=== PATIENT | female | born 1970 | race Caucasian/White ===

== ENCOUNTER 2021-09-18 14:34 | Emergency (ER) | payer OTHER, SELFPAY ==
[2021-09-18 14:36] VITALS: BP 163/87; PULSE 75; RESP 16; TEMP 36.1; O2SAT 98; BMI 30.9
[2021-09-18 14:53] LABS: Mucous, Urine 0 SEEN /hpf (<or=2+)
[2021-09-18 15:04] LABS: Color, Urine Yellow (Yellow); Glucose, Dipstick Normal (Normal); Ketone-Dipstick Negative (Negative); Leukocyte Esterase-Dipstick 25 /ul (Negative); Nitrite-Dipstick Negative (Negative); Occult Blood-Urine 250 /ul (Negative); Protein-Dipstick 15 mg/dl (Negative); Specific Gravity, Urine 1.025 (1.002-1.030); Urine Bilirubin Dipstick Negative (Negative); Urine Clarity Sl. Cloudy (Clear); Urine Urobilinogen Normal (Normal)
[2021-09-18 15:10] LABS: Bacteria 1+ /hpf (None Seen); Red Blood Cells-Urine 25-50 SEEN /hpf (0-5); Squamous Epithelial Cells - UA 0-5 SEEN /hpf (5-10); White Blood Cells 0-5 SEEN /hpf (0-5)
[2021-09-18 15:12] LABS: Absolute Lymphocyte Count 2.79 X10^3/uL (0.83-4.51); Absolute Neutrophil Count 4.2 X10^3/uL (2.0-7.7); Basophil# 0.04 X10^3/uL; Basophil% 0.5 % (0-1); Eosinophil# 0.26 X10^3/uL; Eosinophils% 3.4 % (0-5); Hematocrit 43.4 % (37-47); Lymphocyte # 2.79 X10^3/ul (0.83-4.51); Mean Corp Hgb Conc 34.6 g/dL (32-36); Mean Corpuscular Volume 89.7 fL (81-99); Mean Platelet Vol. 9.6 fl (6.2-12.0); Monocyte# 0.41 X10^3/uL; Monocyte% 5.3 % (0-10); NRBC Flagged by Analyzer 0 % (0-5); Neutrophil # 4.23 X10^3/uL (2.7-7.7); Neutrophil % 54.4 % (47-70); Platelet Count 278 K/mm3 (150-450); RBC Distribution Width CV 12.5 % (11.6-14.6); RBC Distribution Width SD 41.1 fl (35.1-43.9); Red Blood Count 4.84 M/mm3 (4.2-5.4); White Blood Count 7.8 K/mm3 (4.4-11.0)
[2021-09-18 15:26] LABS: Anion Gap 3 (5-15); BUN 14 mg/dL (7-18); BUN/Creat Ratio 21.1 RATIO (10-20); Calcium,Total 9.4 mg/dL (8.5-10.1); Chloride 107 mmol/L (98-107); Creatinine, Serum 0.66 mg/dL (0.55-1.02); EST Glomerular Filtration Rate 101 mL/min (>60); Est Glom Filt Rate - Afr Amer 122 mL/min (>60); Estimated Creatinine Clearance 77.81 ml/min; Glucose 159 mg/dL (74-106); Potassium 3.8 mmol/L (3.5-5.1); Sodium Level 139 mmol/L (136-145)
--- NOTE | 2021-09-18 16:03 | CT_ITS ---
STUDY: CT ABDOMEN AND PELVIS WITH CONTRAST REASON FOR EXAM: Female, 51 years old. LLQ abd pain ?? diverticulitis vs other RADIATION DOSAGE (If Supplied By Facility): CTDIvol = ( 19.24 ) mGy, DLP = ( 1069.42 ) mGycm TECHNIQUE: Transaxial images were obtained from the dome of the diaphragm to the symphysis pubis without oral contrast. IV 100mL Isovue-370 was administered. Sagittal and coronal images were reconstructed. Individualized dose optimization techniques were used for this CT. COMPARISON: 06/04/2016 FINDINGS: The visualized lung bases are unremarkable. The visualized portions of the heart are within normal limits. Normal liver. Normal gallbladder and extrahepatic biliary system. Normal spleen. Normal pancreas. Normal bilateral adrenal glands. Normal right kidney. 3 mm obstructing stone in the mid left ureter with mild ureteral dilatation and hydronephrosis. Normal visualized stomach. Normal small intestine. Normal colon. The appendix is visualized and appears normal. Normal abdominal aorta. Normal inferior vena cava. Normal retroperitoneum. Normal urinary bladder. There is a small umbilical hernia containing fat. Normal osseous structures. CT/Abdomen/Pelvis W IV Cont ONLY IMPRESSION: 3 mm obstructing stone in the mid left ureter with mild ureteral dilatation. Electronically Signed: Yossi Regan MD at 17:33 EDT ,
--- NOTE | 2021-09-18 16:07 | EDS_ITS ---
HPI HPI - GI History of Present Illness Chief Complaint: Abd Pain Informant: patient Abdominal Pain/Flank Pain Onset: Days Context: Gradual Onset Timing: Continuous Quality: Aching Location: LLQ Current Severity: Mild Maximum Severity: Mild Worsened by: Nothing Relieved by: Nothing Nausea/Vomiting/Emesis GI Symptom: Positive for Nausea; Negative for Vomiting Onset: Days Severity: Mild Diarrhea/Melena/Hematochezia GI Symptom: Negative for Diarrhea, Melena or Hematochezia Associated Symptoms Associated Symptoms: Negative for Dysuria, Frequency, Hematuria or Urgency Narrative Narrative: 51-year-old female no seen past medical history. Prior hysterectomy and takedown of adhesions from endometriosis. Also had a prior . 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 Denies any fever chills. Mild nausea no vomiting or diarrhea. No melena. No dysuria. She initially took Azo and levator symptoms better but now she still having the pain. She is never had a history of diverticulitis. Prior similar symptoms: No Recent Illness/Hospitalization: No PFSH PFSH Home Medications loratadine 10 mg tablet (Allergy Relief (loratadine)) 10 mg PO DAILY 07/14/14 [History Last Taken Unknown] ciprofloxacin HCl 500 mg tablet 500 mg PO BID ##20 06/04/16 [Rx Last Taken Unknown] fluconazole 150 mg tablet (Diflucan) 150 mg PO X1 ##3 06/04/16 [Rx Last Taken Unknown] Allergy/AdvReac Type Severity Reaction Status Date / Time amoxicillin [Amoxicillin] Allergy Rash Verified 09/18/21 14:35 azithromycin [From Zithromax] Allergy Fever and Verified 09/18/21 14:35 skin rash Social History Smoking Status: Current every day smoker tobacco type: cigarettes ROS ROS ED ROS Narrative Left lower quadrant abdominal pain with mild nausea. Review of Systems ROS Unobtainable: Denies due to encephalopathy Constitutional Constitutional ED: Denies chills ENT ENT ED: Denies ear pain Cardiovascular Cardiovascular: Denies chest pain Respiratory/Chest Respiratory/Chest: Denies cough Gastrointestinal Gastrointestinal: Reports abdominal pain and nausea; Denies constipation, diarr hea, melena or vomiting Genitourinary Genitourinary ED: Denies dysuria or hematuria Musculoskeletal Musculoskeletal: Denies arthralgias Integumentary Denies abscess Neurologic Neurologic: Denies headache(s) Psychiatric Psychiatric: Denies anxiety Endocrine Endocrinology: Denies polydipsia Hematologic/Lymphatic Hematologic/Lymphatic: Denies easy bleeding Allergic/Immunologic Allergic/Immunologic ED: Denies mouth swelling EXAM Physical Exam Narrative Exam Narrative: female no acute distress vital signs stable afebrile. Lungs are clear. Heart regular rhythm. Abdomen soft nondistended normal bowel sounds no peritoneal signs. Tender left lower quadrant. No hernia or mass. No obstruction. Moving all 4 extremities. Neurologically she is awake and alert. Const Vital Signs: 09/18/21 14:36 09/18/21 18:10 Temperature 97.0 F L Temperature Source Temporal Pulse Rate 75 82 Respiratory Rate 16 16 Blood Pressure 163/87 H 136/75 H Blood Pressure Mean 112 95 Pulse Ox 98 97 Oxygen Delivery Method Room Air Room Air Positive well nourished, well developed and obese; Negative for cachectic, contractures or unkempt General Appearance ED: well developed; Negative for unkempt, cachectic, contractures or pallor Nutritional Appearance: obese; Negative for cachectic HEENT Reports moist mucous membranes normocephalic and atraumatic; Negative for trauma or tenderness Eyes PERRL and EOMs intact bilaterally General Eye ED: Negative for pale conjunctiva or scleral icterus Neck no lymphadenopathy, supple and no JVD General: Negative for tenderness Carotids: Negative for other Lymph Lymphatic: Negative for other Resp normal respiratory effort and clear to auscultation bilaterally Effort and Inspection: Negative for respiratory distress Auscultation: Negative for rales, rhonchi or wheezes Cardio regular rate, regular rhythm, S1 normal heart sound, S2 normal heart sound and no murmurs Rate: Negative for bradycardia Rhythm: Negative for abnormal rhythm GI non-distended and no masses; Negative for non-tender Auscultation: normoactive bowel sounds; Negative for hyperactive bowel sounds or hypoactive bowel sounds Palpation: soft and tender; Negative for guarding, rigid, hepatomegaly or splenomegaly Back/Spine no CVA tenderness General Back: Negative for CVA tenderness Cervical Spine: Negative for cervical spine tenderness Thoracic Spine / Upper Back: Negative for thoracic spinal tenderness Lumbar Spine / Lower Back: Negative for lumbar spinal tenderness Extremity full ROM General Extremety ED: Negative for tenderness Neuro moves all extremities Sensorium / Orientation: alert, oriented to person, oriented to place and oriented to time; Negative for orientation impaired, confused, lethargic or stuporous Motor Exam: strength 5/5 throughout Psych mental status grossly normal Appearance: Negative for unkempt Attitude: No agitated Mood & Affect: Negative for depressed Skin no wounds General Skin Exam: Negative for jaundice or pallor Lesions: no lesions Rashes: no rashes Trauma: Negative for abrasion Nails: Negative for discolored MDM MDM MDM Narrative Medical decision making narrative: 51-year-old female with left lower quadrant abdominal pain. CAT scan labs are pending. Differential would include diverticulitis. She did not want anything for pain or nausea. Repeat exam patient doing well at 7:20 PM. We went over her test results. She did not want a thing for pain or nausea. She has had a kidney stone in the past. She will treated with Tylenol Motrin. Fluids and return if any problems. Lab Data Attestation: I reviewed the patient's lab results. Lab results narrative: CBC normal. White count of 7. H&H 15 and 43. Electrolytes unremarkable gap of 3 normal BUN and creatinine. Glucose 159. UA shows 25-50 red cells but no white cells or nitrites. Serum test negative. CAT scan showed a left mid ureteral 3 mm kidney stone. Consistent with her microscopic hematuria. Labs: Laboratory Results - last 24 hr 09/18/21 09/18/21 09/18/21 14:48 15:00 15:00 WBC 7.8 RBC 4.84 Hgb 15.0 Hct 43.4 MCV 89.7 MCH 31.0 MCHC 34.6 RDW Std Deviation 41.1 RDW Coeff of Darryl 12.5 Plt Count 278 MPV 9.6 Immature Gran % (Auto) 0.400 Neut % (Auto) 54.4 Lymph % (Auto) 36.0 [place] % (Auto) 5.3 Eos % (Auto) 3.4 Baso % (Auto) 0.5 Absolute Neuts (auto) 4.2 Absolute Lymphs (auto) 2.79 Nucleated RBC % 0 Sodium 139 Potassium 3.8 Chloride 107 Carbon Dioxide 29.0 Anion Gap 3 L BUN 14 Creatinine 0.66 Estim Creat Clear Calc 77.81 Est GFR (MDRD) Af Amer 122 Est GFR (MDRD) Non-Af 101 BUN/Creatinine Ratio 21.1 H Glucose 159 H Calcium 9.4 Serum , Qual Urine Color Yellow Urine Clarity Sl. Cloudy Urine pH 6.0 Ur Specific Downey 1.025 Urine Protein 15 H Urine Glucose (UA) Normal Urine Ketones Negative Urine Occult Blood 250 H Urine Nitrite Negative Urine Bilirubin Negative Urine Urobilinogen Normal Ur Leukocyte Esterase 25 H Urine RBC 25-50 SEEN Urine WBC 0-5 SEEN Ur Squamous Epith Cells 0-5 SEEN Urine Bacteria 1+ Urine Mucus 0 SEEN 09/18/21 15:00 WBC RBC Hgb Hct MCV MCH MCHC RDW Std Deviation RDW Coeff of Darryl Plt Count MPV Immature Gran % (Auto) Neut % (Auto) Lymph % (Auto) [place] % (Auto) Eos % (Auto) Baso % (Auto) Absolute Neuts (auto) Absolute Lymphs (auto) Nucleated RBC % Sodium Potassium Chloride Carbon Dioxide Anion Gap BUN Creatinine Estim Creat Clear Calc Est GFR (MDRD) Af Amer Est GFR (MDRD) Non-Af BUN/Creatinine Ratio Glucose Calcium Serum , Qual NEGATIVE Urine Color Urine Clarity Urine pH Ur Specific [place] Urine Protein Urine Glucose (UA) Urine Ketones Urine Occult Blood Urine Nitrite Urine Bilirubin Urine Urobilinogen Ur Leukocyte Esterase Urine RBC Urine WBC Ur Squamous Epith Cells Urine Bacteria Urine Mucus Radiography Diagnostic Testing: Clinical Impression(s) from Imaging Studies Abdomen/Pelvis CT 09/18/21 16:03 IMPRESSION: 3 mm obstructing stone in the mid left ureter with mild ureteral dilatation. Electronically Signed: Yossi Regan MD at 17:33 EDT Reading Location ID and State: [address] [place] [address] Tel , Service support , Discharge Plan Triage Chief Complaint: Abd Pain ED Provider: Pedro Deleon Dx/Rx/DC Orders Clinical Impression: Acute flank pain, Kidney stone on left side Instructions: ED Kidney Stone w/ Colic Prescriptions: No Action loratadine [Allergy Relief (loratadine)] 10 MG tablet 10 mg PO DAILY ciprofloxacin HCl 500 MG tablet 500 mg PO BID Qty: 20 0RF fluconazole [Diflucan] 150 MG tablet 150 mg PO X1 Qty: 3 0RF Primary Care Provider: Care Physician,No Primary Referrals: Marcial Curtis MD [STAFF PHYSICIAN] - As Needed NOT,DEFINED [NON-STAFF] - Activity Restrictions/Additional Instructions: Plenty of fluids. Motrin and Tylenol. You have a 3 mm kidney stone on the left that is long-term down your bladder. This should pass. Return or follow-up if increasing pain, fever or intractable vomiting. Disposition Disposition: Home, Self Care
[2021-09-18 16:26] LABS: Internal QC Validated? YES +Cl - CLEAR BKGD; Pregnancy, Serum, hCG Quali. NEGATIVE Negative
[2021-09-18 18:10] VITALS: BP 136/75; PULSE 82; RESP 16; O2SAT 97
--- NOTE | 2021-09-18 19:23 | CM.ED ---
Social Work Note Reason for Referral: No PCP SW in to speak with pt. Pt confirms she has no PCP. SW provided pt with PCP list/Healthcare Provider Directory. Beatriz Garrett MEAT [employer]IC[employer], [employer] PROFESSOR
[2021-09-18 19:27] VITALS: BP 124/74; PULSE 78; RESP 17
== END 2021-09-18 19:28 | disposition home or self-care (01) ==
PROVIDERS: Emergency Provider Emergency Medicine; Visit Provider Emergency Medicine
DX: N20.0 Calculus of kidney (principal); R10.32 Left lower quadrant pain; F17.210 Nicotine dependence, cigarettes, uncomplicated; E66.9 Obesity, unspecified
CPT/HCPCS: 74177; 80048; 81001; 84703; 85025; 99283; Q9967; A4216

== ENCOUNTER → 2023-05-16 | Outpatient (CLI) | payer OTHER, SELFPAY ==
--- NOTE | 2023-05-16 16:02 | BI_ITS ---
MAMMOGRAPHY - BILATERAL SCREENING REASON FOR EXAM: Female, 53 years old. Routine annual screening examination. PERTINENT HISTORY: Non-contributory. TECHNIQUE: Digital bilateral breast isaías (3D mammographic acquisition) in the CC and MLO projections. 2-D mediolateral oblique (MLO) and craniocaudad (CC) views of both breasts were obtained. CAD: Full Field Digital Mammography with Computer Added Detection was performed. COMPARISON: None. Baseline examination. FINDINGS: Breast Composition: The breasts are heterogeneously dense, which may obscure small masses. There are no dominant masses or suspicious calcifications. Fat-containing left axillary lymph node. No other significant abnormalities are identified. BI/SCRN MAMM (CAD)W/ISAÍAS BILAT IMPRESSION: Negative screening mammogram. Yearly followup mammogram recommended. (A) ASSESSMENT CATEGORY: BIRADS Category 2: Benign. A letter regarding these results will be sent to the patient by the facility within 30 days. Approximately 10% of breast cancers are not detected by mammography. A normal mammogram should not delay biopsy of a clinically suspicious abnormality. [id number] Electronically Signed: Lester Kirkpatrick MD at 8:40 EDT ,
== END | disposition home or self-care (01) ==
LOC: OPBI 16:02
PROVIDERS: PCP Family Medicine; Referring Provider Family Medicine; Visit Provider Family Medicine
DX: Z12.31 Encounter for screening mammogram for malignant neoplasm of breast (principal)
CPT/HCPCS: 77063; 77067

== ENCOUNTER 2023-10-23 08:45 | Day surgery (SDC) | payer OTHER, SELFPAY ==
[2023-10-23] VITALS (7 sets, daily range): BP systolic 108–134; BP diastolic 71–76; PULSE 62–72; RESP 16–18; TEMP 36.1–36.6; O2SAT 97–99; BMI 27.8
--- NOTE | 2023-10-23 09:02 | PCM.PRE.AN2 ---
ASA Classification* ASA Classification ASA Classification: 2 Assessment & Plan Anesthesia* Anesthesia Assessment Anesthesia Assessment: Discussed sedation and/or anesthesia options, risks, benefits, and alternatives with patient/parents/legal guardian/POA. Questions invited. The patient/parents/legal guardian/POA seems to understand and agrees to proceed with anesthesia plan. Reviewed the physical assessment, medical history, allergy history and patient home medications list prior to surgery/procedure/anesthetic and documented any changes. Performed airway and anesthesia risk assessments. Anesthesia Type Anesthesia Type: MAC Anesthesia Focused Assessment* Airway Assessment Mouth opens: >3 cm Mallampati Score: II Focused Labs Anesthesia Preop lab: CBC WBC 7.8 K/mm3 (4.4-11.0) 09/18/21 15:00 RBC 4.84 M/mm3 (4.2-5.4) 09/18/21 15:00 Hgb 15.0 g/dL (12.0-15.0) 09/18/21 15:00 Hct 43.4 % (37-47) 09/18/21 15:00 Plt Count 278 K/mm3 (150-450) 09/18/21 15:00 CHEMISTRY Potassium 3.8 mmol/L (3.5-5.1) 09/18/21 15:00 Sodium 139 mmol/L (136-145) 09/18/21 15:00 BUN 14 mg/dL (7-18) 09/18/21 15:00 Creatinine 0.66 mg/dL (0.55-1.02) 09/18/21 15:00 Glucose 159 mg/dL (74-106) H 09/18/21 15:00 POC Glucose 237 mg/dL (70-110) H 06/04/16 19:45 COAG Pre-Assessment Diagnosis/Proposed Procedure Planned Operative Procedure(s): COLONOSCOPY Anesthesia History Anesthesia History - medical field representative: Anesthesia History - medical field representative Hx Hospitalization No 10/17/23 12:42 Any Problems With Anesthesia No 10/17/23 12:42 Cholinesterase deficiency No 10/17/23 12:42 You/Your Family Experience No 10/17/23 12:42 fever (hyperthermia) with Relationship Recent Exposure to Contagious No 11/02/13 06:20 Disease Does patient have nerve No 10/17/23 12:42 stimulator Patient instructed to have device shut off --Does patient have Pacemaker or ICD? When Was Last Pacemaker Check QUESTION #4 FULL TEXT: You/Your Family Experience fever (hyperthermia) with Anesthesia Last Oral Intake Last Oral intake: Last Oral Intake NPO since Meds taken in AM with sips of water? Meds patient instructed to take am of surgery PONV PONV - medical field representative: PONV - medical field representative Female Yes 10/17/23 12:42 HX of Motion Sickness No 10/17/23 12:42 HX of N/V After Surgery No 10/17/23 12:42 Non-Smoker Yes 10/17/23 12:42 Duration of Surgery greater No 10/17/23 12:42 than 60 minutes Number of Risk Factors 2 10/17/23 12:42 PONV Score Moderate Risk 10/17/23 12:42 Height & Weight Height & Weight: Anesthesia: Height & Weight Height 5 ft 2 in 10/02/23 08:28 Respiratory Assessment Respiratory Assessment - medical field representative: Respiratory Tract Infection Hx - medical field representative Hx Respiratory Tract Infection No 10/17/23 12:42 STOP Sleep Apnea STOP Sleep Apnea - medical field representative: STOP Sleep Apnea - medical field representative Hx Hypertension No 10/17/23 12:42 Hx Sleep Apnea No 10/17/23 12:42 CPAP BIPAP Do you snore loudly (louder No 10/17/23 12:42 than talking or can be heard Do you often feel tired/ No 10/17/23 12:42 fatigued/ sleepy during daytime? Has anyone observed you stop No 10/17/23 12:42 breathing during sleep? STOP Results Negative 10/17/23 12:42 QUESTION #5 FULL TEXT : Do you snore loudly (louder than talking or can be heard through closed doors)? 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 Specify any problems Hx of Preganancy in last 3 No 10/17/23 12:42 Months Nurse Filling Out Transfusion [id number] 10/17/23 12:42 & Questions: Date: 10/17/23 10/17/23 12:42 Time: 12:44 10/17/23 12:42 Patient unable to answer at this time (ie. confused, unrespo /Reproduction History /Reproductive History - medical field representative: /Reproductive Hx- medical field representative Hx Now No 10/17/23 12:42 Gestational Age (in weeks): EDC: Hx Hx Para Hx Section SAB No 10/17/23 12:42 Active Medications Active Medications: Current Medications Generic Name Dose Route Start Last Admin Trade Name Freq PRN Reason Stop Dose Admin Lactated Ringer's 1,000 mls @ 15 mls/hr 10/23/23 09:00 IV .Q48H WILIAN PFSH Medical History Alcohol use Heartburn Family history of colon cancer in father Home Medications ?Medication ?Instructions ?Recorded ?Last Taken ?Type NK 10/17/23 Unknown History Allergy/AdvReac Type Severity Reaction Status Date / Time amoxicillin (Amoxicillin) Allergy Rash Verified 10/17/23 12:41 azithromycin (From Zithromax) Allergy Rash Verified 10/17/23 12:41 Family History Father Colon cancer Mother Diabetes Surgical History H/O: hysterectomy Social History household members: significant other and children current occupational status: employed current occupation: [employer] Smoking Status: Current every day smoker tobacco type: cigarettes details: Occasional alcohol substance use type: does not use Review of Systems (Anesthesia) ROS Narrative System reviewed and no additional complaints, except as documented.
[2023-10-23] MEDS: Lactated Ringers 1,000 ML 15 ML IV (09:10)
--- NOTE | 2023-10-23 10:14 | PCM.HP.STD ---
[facility] - General General Date of Admission: 10/23/23 Date of Service: 10/23/23 Chief Complaint: Screening colonoscopy HPI Narrative YAJAIRA KOWALSKI, is a 53 F who presents today for screening colonoscopy. She has not had a colonoscopy in the past. She did have abdominal pain. She denied any bleeding. She is not any chest pain shortness of breath. Overall she is in very good health. She does not take any medicines on a daily basis. [facility] Medical History Alcohol use Heartburn Family history of colon cancer in father Home Medications ?Medication ?Instructions ?Recorded ?Last Taken ?Type NK 10/17/23 Unknown History Allergy/AdvReac Type Severity Reaction Status Date / Time amoxicillin (Amoxicillin) Allergy Rash Verified 10/23/23 09:07 azithromycin (From Zithromax) Allergy Rash Verified 10/23/23 09:07 Family History Father Colon cancer Mother Diabetes Surgical History H/O: hysterectomy Social History household members: significant other and children current occupational status: employed current occupation: [employer] Smoking Status: Current every day smoker tobacco type: cigarettes details: Occasional alcohol substance use type: does not use ROS Review of Systems ROS Unobtainable: other Constitutional Constitutional: Denies fatigue, fever(s), poor appetite, weight gain or weight loss ENT HEENT: Denies mouth lesions Cardiovascular Cardiovascular: Denies abdominal bloating, abdominal edema or abdominal pain Respiratory/Chest Respiratory/Chest: Denies change in mental status, change in phlegm color, chest congestion or chest tightness Gastrointestinal Gastrointestinal: Denies belching, bloating, change in bowel habits, change in stool character, chewing difficulty, coffee ground emesis, constipation, cramping, diarrhea, dyspepsia, dysphagia, early satiety, excessive flatus, fecal incontinence, heartburn, hematemesis, hematochezia, hemorrhoids, loose stools, melena, nausea, odynophagia, rectal bleeding, tenesmus, vomiting or weight changes Genitourinary Genitourinary: Denies abdominal discomfort, burning urination or itching Musculoskeletal Musculoskeletal: Reports as per HPI; Denies muscle weakness or myalgias Integumentary Integumentary: Denies jaundice Neurologic Neurologic: Denies lack of coordination or weakness Psychiatric Psychiatric: Denies confusion, depression, memory loss, mood swings, paranoia or suicidal ideation Endocrine Endocrinology: Denies systems reviewed and no addt'l complaints, except as documented Hematologic/Lymphatic Hematologic/Lymphatic: Denies anemia, easy bleeding, easy bruising or lymphadenopathy Allergic/Immunologic Allergic/Immunologic: Denies systems reviewed and no addt'l complaints, except as documented Vital Signs Vital Signs Vital Signs: 10/23/23 09:07 10/23/23 09:07 Temperature 97.8 F Temperature Source Temporal Pulse Rate 62 Respiratory Rate 16 Respiratory Pattern Normal Blood Pressure 134/73 H Blood Pressure Mean 93 Blood Pressure Source Monitor Blood Pressure Position Semi-Fowlers Blood Pressure Location Left Arm Oxygen Delivery Method Room Air Weight Weight: 152 lb 1.903 oz Body Mass Index (BMI) 27.8 Physical Exam Const alert General Appearance: cooperative Orientation / Consciousness: oriented to person HEENT hearing grossly normal bilaterally Head and Scalp: normal to inspection Face and Sinus: face symmetric Nose: external nose normal Mouth: oral and palatal mucosa normal Eyes conjunctivae normal General Eye: normal appearance of both eyes Neck full ROM General: normal visual inspection Lymph Lymphatic: no lymphadenopathy noted Chest inspection of chest normal and palpation of chest normal Chest: symmetrical chest wall rise Resp normal respiratory effort Effort and Inspection: able to speak in complete sentences Cardio regular rate GI non-distended Percussion: normal to percussion Rectal Exam: deferred Neuro Speech: speech normal Gait (Neuro): normal gait Assessment & Plan Assessment/Plan (1) Encounter for screening for malignant neoplasm of colon: PLAN: She was explained alternatives, risk, benefits including not withstanding bleeding, infection, sepsis, perforation, need for emergent urgent . She will have an ASA of 2.
--- NOTE | 2023-10-23 10:48 | OP.CCLET_ITS ---
10/23/2023 Ramiro Serrano [address] [place] [address] Re : Colonoscopy procedure for Tere Zabala Dear Dr. Serrano This procedure was performed on Monday, October 23, 2023. My impressions and recommendations are as follows: Impressions : - Diverticulosis in the recto-sigmoid colon and in the sigmoid colon. - The examination was otherwise normal on direct and retroflexion views. - No specimens collected. Recommendations : - Discharge patient to home. - Resume previous diet. - Continue present medications. - Repeat colonoscopy in 10 years for screening purposes. My findings are described in the full procedure note, which is enclosed. If I can be of further assistance, please feel free to contact me at . Sincerely, Marcin Kelly, 10/23/2023 10:47:32 AM This report has been signed electronically.
--- NOTE | 2023-10-23 10:48 | OP.COLON_ITS ---
Patient Name: Tere Zabala Procedure Date: 10/23/2023 10:09 AM Date of : 1970 Age: 53 Procedure: Colonoscopy Indications: Screening for colorectal malignant neoplasm Providers: Marcin Kelly DO Medicines: Monitored Anesthesia Care Patient Profile: This is a 53 year old female. Refer to note in patient chart for documentation of history and physical. Last Colonoscopy: none. The patient's first colonoscopy is today. Complications: No immediate complications. Procedure: Pre-Anesthesia Assessment: - Prior to the procedure, a History and Physical was performed, and patient medications and allergies were reviewed. The patient is competent. The risks and benefits of the procedure and the sedation options and risks were discussed with the patient. All questions were answered and informed consent was obtained. Patient identification and proposed procedure were verified by the physician in the pre-procedure area. Mental Status Examination: alert and oriented. Airway Examination: normal oropharyngeal airway and neck mobility. Respiratory Examination: clear to auscultation. CV Examination: normal. Prophylactic Antibiotics: The patient does not require prophylactic antibiotics. Prior Anticoagulants: The patient has taken no anticoagulant or antiplatelet agents except for NSAID medication. ASA Grade Assessment: II - A patient with mild systemic disease. After reviewing the risks and benefits, the patient was deemed in satisfactory condition to undergo the procedure. The anesthesia plan was to use monitored anesthesia care (MAC). Immediately prior to administration of medications, the patient was re-assessed for adequacy to receive sedatives. The heart rate, respiratory rate, oxygen saturations, blood pressure, adequacy of pulmonary ventilation, and response to care were monitored throughout the procedure. The physical status of the patient was re-assessed after the procedure. After I obtained informed consent, the scope was passed under direct vision. Throughout the procedure, the patient's blood pressure, pulse, and oxygen saturations were monitored continuously. The pediatric colonoscope was introduced through the anus and advanced to the cecum, identified by appendiceal orifice and ileocecal valve. The colonoscopy was performed without difficulty. The patient tolerated the procedure well. The quality of the bowel preparation was adequate. The ileocecal valve, appendiceal orifice, and rectum were photographed. Scope In: 10:27:53 AM Scope Withdrawal Time 0 hours 7 minutes 43 seconds Scope Out: 10:41:44 AM Total Procedure Duration Time 0 hours 13 minutes 51 seconds Findings: The perianal and digital rectal examinations were normal. A few small and large-mouthed diverticula were found in the recto-sigmoid colon and sigmoid colon. The exam was otherwise without abnormality on direct and retroflexion views. Impression: - Diverticulosis in the recto-sigmoid colon and in the sigmoid colon. - The examination was otherwise normal on direct and retroflexion views. - No specimens collected. Recommendation: - Discharge patient to home. - Resume previous diet. - Continue present medications. - Repeat colonoscopy in 10 years for screening purposes. Procedure Code(s): --- Professional --- G0121, Colorectal cancer screening; colonoscopy on individual not meeting criteria for high risk CPT copyright 2021 [employer]. All rights reserved. The codes documented in this report are preliminary and upon business performance advisor review may be revised to meet current compliance requirements. Marcin Kelly DO 10/23/2023 10:47:32 AM This report has been signed electronically. Number of Addenda: 0 Note Initiated On: 10/23/2023 10:09 AM
--- NOTE | 2023-10-23 10:52 | PCM.POST.ANE ---
Anesthesia: Postop Eval I Current Vital Signs Temperature: 97.2 F Pulse Rate: 72 Blood Pressure: 112/72 Respiratory Rate: 16 Pulse Ox: 97 Oxygen Delivery Method: Room Air Assessment Airway patent: Yes Spontaneous unlabored respirations: Yes Mental status: Asleep nausea: No Vomiting: No Anesthesia Complication: No Fluid Hydration Crystalloid volume administer (ml): 600 Total IV fluid infused: 600 Progress Note Anesthesia document: Postop Eval 1 completed: Yes
--- NOTE | 2023-10-23 11:09 | SUR.PHASEI ---
Pt noted her father and paternal grandmother both had colon cancer, called Dr. Kelly to clarify when to repeat colonoscopy, 5 years.
--- NOTE | 2023-10-23 11:46 | PCM.POSTANE2 ---
Anesthesia Postop Eval I Sum Postop Eval Completion status Anesthesia document: Postop Eval 1 completed: Yes Anesthesia Postop Eval I Summary Anesthesia Postop Eval I Summary: Anesthesia Postop Eval I: Assessment Summary Airway patent Yes 10/23/23 10:53 [email or web address] Spontaneous unlabored Yes 10/23/23 10:53 [email or web address] respirations Mental status Asleep 10/23/23 10:53 [email or web address] nausea No 10/23/23 10:53 [email or web address] Vomiting No 10/23/23 10:53 [email or web address] Anesthesia Postop Eval I: Fluid Summary Crystalloid volume administer 600 10/23/23 10:53 [email or web address] (ml) Colloids volume administered ( ml) Blood Product volume administered (ml) Total IV fluid infused 600 10/23/23 10:53 [email or web address] Anesthesia Postop Eval I: Summary Notes Anesthesia Complication No 10/23/23 10:53 [email or web address] Anesthesia Complication Comment: Post-operative progress note Anesthesia: Postop Eval II Evaluation Mental status: Awake Pain Level: 0 nausea: No Vomiting: No
== END 2023-10-23 11:23 | disposition home or self-care (01) ==
LOC: EN 08:49 → AC 08:49
PROVIDERS: PCP Family Medicine; Referring Provider Internal Medicine Gastroenterology; Visit Provider Internal Medicine Gastroenterology
PROC: 0DJD8ZZ Inspection of Lower Intestinal Tract, Via Natural or Artificial Opening Endoscopic (ICD-10-PCS; CPT 45378; principal; 2023-10-23 09:55)
DX: Z12.11 Encounter for screening for malignant neoplasm of colon (principal); K57.30 Diverticulosis of large intestine without perforation or abscess without bleeding; F17.210 Nicotine dependence, cigarettes, uncomplicated; Z80.0 Family history of malignant neoplasm of digestive organs
CPT/HCPCS: 45378; J7120; J2405